=== PATIENT | female | born 1990 | race Caucasian/White ===

== ENCOUNTER 2018-02-09 10:11 | Emergency (ER) | payer OTHER ==
[2018-02-09 10:21] VITALS: BMI 23.3
--- NOTE | 2018-02-09 10:29 | PDOC ---
Attending Attestation - Resident Resident Name: Brooklyn Elkins - HPI HPI: 02/09/18 12:36 Pt presents to the ED complaining of vaginal spotting and pelvic cramping. Denies vaginal discharge or heavy bleeding. Denies fever. LMP in December with positive U preg at home. Has not seen an OB. 02/10/18 10:01 02/10/18 10:01 - Physicial Exam PE: 02/10/18 10:01 Agree with resident exam. patient is well appearing and in no acute distress. Abdomen is non tender. Pelvic exam: os is closed, minimal amount of physiologic white discharge, no blood. No CMT, very mild L sided adnexal tenderness. - Medical Decision Making 02/10/18 10:03 Pt presents to the ED complaining of pelvic cramping and vaginal spotting. Concern for ectopic . is a desired . BHCG is 6600. + IUP without yolk sac or pole on transvaginal US. Case discussed with FORMS EXAMINER Dr Guerrero, who states that the patient is safe for follow up given that it is a desired and that the patient is only mildly symptomatic. Will discharge home with ectopic precautions and instructions to follow up without fail at Dr. Guerrero's office or the ED on Sunday. Patient understands that she may have an ectopic and MUST return for worsening symptoms.
--- NOTE | 2018-02-09 10:34 | PDOC ---
History of Present Illness - General Chief Complaint: Vaginal Bleeding Stated Complaint: POSSIBLE Vaginal Bleeding Time Seen by Provider: 02/09/18 10:26 - History of Present Illness Initial Comments: 27F w/ no significant pmhx presents with 1 week history of light vaginal spotting. LMP was 01/06/18. Pt states she took a 1 week ago and today, both of which were positive. She also admits to L lower pelvic pain that she rates 5/10, worsened during ambulation. L pelvic pain started last week. Pt admits to 1 sexual partner, her . Denies contraceptive use of any kind. Denies any hx of STDs. Admits to increased fatigue, breast tenderness, mild vaginal itching. Of note, pt reports she had a transvaginal u/s ordered by her PCP last August because she was planning to get . According to pt, results were normal. She has never seen a vacuum drier operator, nor has had a pelvic exam. 02/09/18 10:52 Past History - Past Medical History Allergies/Adverse Reactions: Allergies Allergy/AdvReac Type Severity Reaction Status Date / Time No Known Allergies Allergy Unverified 02/09/18 10:35 Home Medications: Ambulatory Orders Pnv No.121/Iron/Folic Acid [ Multivitamin Tablet] 1 each PO DAILY COPD: No - Suicide/Smoking/Psychosocial Hx Smoking History: Never smoked Have you smoked in the past 12 months: No Hx Alcohol Use: No Drug/Substance Use Hx: No Substance Use Type: None Review of Systems - Review of Systems Able to Perform ROS?: Yes Is the patient limited Cambodian proficient: No Constitutional: Yes: Malaise. No: Fever, Weakness HEENTM: No: Recent change in vision Respiratory: No: Shortness of Breath, SOB with Exertion Cardiac (ROS): No: Chest Pain, Lightheadedness ABD/GI: Yes: See HPI : Yes: Frequency Neurological: No: Headache, Numbness, Paresthesia Hematologic/Lymphatic: No: Easy Bleeding, Easy Bruising *Physical Exam - Vital Signs Last Vital Signs Temp Pulse Resp BP Pulse Ox 99.1 F 107 H 18 148/85 100 02/09/18 10:18 02/09/18 10:18 02/09/18 10:18 02/09/18 10:18 02/09/18 10:18 - Physical Exam General Appearance: Yes: Appropriately Dressed HEENT: positive: EOMI, DEE Neck: positive: Supple Respiratory/Chest: positive: Lungs Clear, Normal Breath Sounds Cardiovascular: positive: Regular Rhythm, Regular Rate, S1, S2. 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 No uterine masses seen. Intrauterine fluid collection that has appearance of gestational sac. No yolk sac or pole are present, viability of gestation is uncertain. Correlate with serial b-HCGs and f/u ultrasound recommended. 1 cm cyst within L ovary. No evidence of adnexal masses or free pelvic fluid collections. Possible early IUP. Will refer patient to OBGYN for follow up of this . 02/09/18 13:47 Spoke with OBGYN (Dr. Guerrero). Recommend to follow up outpatient this Sunday, for further evaluation. Pt made aware for follow up with OBGYN. *DC/Admit/Observation/Transfer Diagnosis at time of Disposition: Vaginal bleeding, Pelvic pain - Discharge Dispostion Disposition: HOME Condition at time of disposition: Good Decision to Admit order: No - Referrals Referrals: Michelle Jacobsen MD [Primary Care Provider] - Natalee Guerrero MD [Staff Physician] - - Patient Instructions Additional Instructions: You were seen in the ED for complaints of vaginal bleeding and pelvic pain. In the ED, a transvaginal ultrasound was done that did not show an acute concern for hospitalization at this time. It is important that you follow up with your OBGYN this Sunday for further evaluation. You were given a referral to see Dr. Guerrero. Please make an appointment for this Sunday, February 11, 2018. Please also follow up with your primary care physician within 1 week. If you experience persistent abdominal/pelvic pain, increased vaginal bleeding, chest pain, shortness of breath, please proceed to your nearest emergency room immediately. - Post Discharge Activity
[2018-02-09 11:25] LABS: URINE APPEARANCE CLEAR; URINE BILIRUBIN NEGATIVE (<2.0 mg/dL); URINE COLOR LTYELLOW; URINE GLUCOSE (UA) NEGATIVE (NEGATIVE); URINE KETONE NEGATIVE (NEGATIVE); URINE LEUK ESTERASE NEGATIVE (NEGATIVE); URINE NITRITE NEGATIVE (NEGATIVE); URINE PROTEIN NEGATIVE (NEGATIVE); URINE UROBILINOGEN NEGATIVE mg/dL (0.2-1.0)
[2018-02-09 11:50] LABS: BASO % 0.8 % (0-2.0); EOS % 0.8 % (0-4.5); HEMATOCRIT 39.5 % (32.4-45.2); HEMOGLOBIN 12.9 GM/dL (10.7-15.3); LYMPH % 32.7 % (8-40); MCH 29.5 pg (25.7-33.7); MCHC 32.5 g/dl (32.0-36.0); MEAN CELL VOLUME 90.7 fl (80-96); MEAN PLT VOLUME 9.5 fl (7.5-11.1); MONO % 8.5 % (3.8-10.2); NEUT % 57.2 % (42.8-82.8); PLATELET COUNT 209 K/MM3 (134-434); RBC 4.36 M/mm3 (3.60-5.2); RDW 13.5 % (11.6-15.6); WHITE BLOOD COUNT 4.5 K/mm3 (4.0-10.0)
[2018-02-09 12:48] LABS: ALBUMIN 3.8 g/dl (3.4-5.0); ALK PHOS 43 U/L (45-117); ANION GAP 7 MMOL/L (8-16); BILIRUBIN,TOTAL 0.3 mg/dL (0.2-1); BLOOD UREA NITROGEN 8 mg/dL (7-18); CHLORIDE 112 mmol/L (98-107); CO2 26 mmol/L (21-32); CREATININE 0.6 mg/dL (0.55-1.3); GLUCOSE,RANDOM 79 mg/dL (74-106); SGOT/AST 12 U/L (15-37); SGPT/ALT 17 U/L (13-61); SODIUM 145 mmol/L (136-145); TOT PROT 7.1 g/dl (6.4-8.2)
[2018-02-09 13:57] VITALS: BP 124/74; PULSE 84; TEMP 98.9
== END 2018-02-09 14:40 | disposition home or self-care (01) ==
LOC: JER 10:11
DX: O26.891 Other specified pregnancy related conditions, first trimester (principal); O20.8 Other hemorrhage in early pregnancy; O34.81 Maternal care for other abnormalities of pelvic organs, first trimester; N83.202 Unspecified ovarian cyst, left side; Z3A.01 Less than 8 weeks gestation of pregnancy
CPT/HCPCS: 36415; 76817-TC; 80053; 81003; 84702; 84703; 85025; 86850; 86900; 86901; 99282-25

== ENCOUNTER 2018-03-15 20:03 | Emergency (ER) | payer OTHER ==
[2018-03-15 20:14] VITALS: BP 120/45; PULSE 91; TEMP 98.9; BMI 22.7
--- NOTE | 2018-03-15 20:18 | PDOC ---
Rapid Medical Evaluation Chief Complaint: Vaginal Bleeding Time Seen by Provider: 03/15/18 20:14 Medical Evaluation: Allergies Allergy/AdvReac Type Severity Reaction Status Date / Time No Known Allergies Allergy Unverified 03/15/18 20:12 Vital Signs Temp Pulse Resp BP Pulse Ox 98.9 F 91 H 18 120/45 L 100 03/15/18 20:12 03/15/18 20:12 03/15/18 20:12 03/15/18 20:12 03/15/18 20:12 03/15/18 20:15 I have performed a brief in-person evaluation of this patient. The patient presents with a chief complaint of:vaginal bleeding w/ clots tonight. No abd pain. , ~ 8-9 weeks . Had US here 01/31 read as possible early IUP, no f/u US since. Beta then was > 6K. Pertinent physical exam findings:stable I have ordered the following:labs/US The patient will proceed to the ED for further evaluation. Discharge Disposition - Diagnosis Vaginal bleeding - Referrals Referrals: Michelle Jacobsen MD [Primary Care Provider] - - Patient Instructions - Post Discharge Activity
--- NOTE | 2018-03-15 21:01 | PDOC ---
History of Present Illness - General Chief Complaint: Vaginal Bleeding Stated Complaint: Vaginal Bleeding 8 WEEKS Time Seen by Provider: 03/15/18 20:14 - History of Present Illness Initial Comments: The patient is a 27F, , at 8wks by LMP who presents w/ 2hr of vaginal bleeding with clots. Patient reports similar occurrence at 1wk. Reports going through 3 pads today. Patient endorses taking vitamins. States that she was seen at 1m at a clinic but denies ever seeing a OBGYN at that time but saw a nurse/mechanical design technician. Was told hormone levels at that time were appropriate. Has not had a US or checkup since that time. Denies fevers/chills, HICKS, chest pain, SOB, abdominal pain, C/D, or changes in sensation 03/15/18 21:06 Past History - Past Medical History Allergies/Adverse Reactions: Allergies Allergy/AdvReac Type Severity Reaction Status Date / Time No Known Allergies Allergy Unverified 03/15/18 20:12 Home Medications: Ambulatory Orders Pnv No.121/Iron/Folic Acid [ Multivitamin Tablet] 1 each PO DAILY COPD: No - Suicide/Smoking/Psychosocial Hx Smoking History: Never smoked Have you smoked in the past 12 months: No Hx Alcohol Use: No Drug/Substance Use Hx: No Substance Use Type: None Review of Systems - Review of Systems Able to Perform ROS?: Yes Comments:: GENERAL/CONSTITUTIONAL: No fever or chills. No weakness HEAD, EYES, EARS, NOSE AND THROAT: No change in vision. No ear pain or discharge. No sore throat CARDIOVASCULAR: No chest pain or shortness of breath GASTROINTESTINAL: No nausea, vomiting, diarrhea or constipation GENITOURINARY: No dysuria, frequency, or change in urination MUSCULOSKELETAL: No joint or muscle swelling or pain. No neck or back pain SKIN: No rash NEUROLOGIC: No headache, vertigo, loss of consciousness, or change in strength/ sensation ENDOCRINE: No increased thirst. No abnormal weight change HEMATOLOGIC/LYMPHATIC: No anemia, easy bleeding, or history of blood clots ALLERGIC/IMMUNOLOGIC: No hives or skin allergy 03/15/18 21:07 Is the patient limited Slovenian proficient: No *Physical Exam - Vital Signs Last Vital Signs Temp Pulse Resp BP Pulse Ox 98.9 F 91 H 18 120/45 L 100 03/15/18 20:12 03/15/18 20:12 03/15/18 20:12 03/15/18 20:12 03/15/18 20:12 - Physical Exam Comments: GENERAL: Awake, alert, and fully oriented, in no acute distress HEAD: No signs of trauma, normocephalic, atraumatic EYES: PERRLA, EOMI, sclera anicteric, conjunctiva clear ENT: Hearing grossly normal, nares patent, oropharynx clear without exudates. Moist mucosa LUNGS: No distress, speaks full sentences, clear to auscultation bilaterally HEART: Regular rate and rhythm, normal S1 and S2, no murmurs appreciated, peripheral pulses normal and equal bilaterally ABDOMEN: Soft, flat, nontender, normoactive bowel sounds. No guarding, no rebound. No masses EXTREMITIES : Normal inspection, Normal range of motion, no edema. No clubbing or cyanosis NEUROLOGICAL: Cranial nerves II through XII grossly intact. Normal speech, normal gait, no focal sensorimotor deficits SKIN: Warm, Dry, normal turgor, no rashes or lesions noted Pelvic External genitalia unremarkable. Speculum exam with bright red blood in vaginal vault Vaginal wall mucosa is unremarkable. Cervix visualized, closed with blood from os Bimanual exam without cervical motion tenderness, adnexal tenderness or any masses appreciated 03/15/18 21:07 Moderate Sedation - Procedure Monitoring Vital Signs: Procedure Monitoring Vital Signs Temperature 98.9 F 03/15/18 20:12 Pulse Rate 91 H 03/15/18 20:12 Respiratory Rate 18 03/15/18 20:12 Blood Pressure 120/45 L 03/15/18 20:12 O2 Sat by Pulse Oximetry (%) 100 03/15/18 20:12 ED Treatment Course - LABORATORY CBC & Chemistry Diagram: 03/15/18 22:20 Medical Decision Making - Medical Decision Making The patient is a 27F w/ no reported PMH who presents for evaluation of 2hr of vaginal bleeding w/ clots ED Course T/S, Beta-quant, CBC UA Transvaginal US 03/15/18 21:08 Beta-quant [id number] US read pending CBC pending 03/15/18 22:31 No anemia, Hgb 13 No leukocytosis 03/15/18 22:35 Pelvic exam notable to BRB in vaginal canal, closed os Transvaginal US significant for subchorionic hemorrhage; IUP; fHR 156 T/S: O+ Plan for D/C w/ PCP and OBGYN f/u Results, plan, discharge instructions and return precautions discussed w/ patient who is in agreement and verbalized understanding Dispo: Home *DC/Admit/Observation/Transfer Diagnosis at time of Disposition: Vaginal bleeding Qualifiers: Weeks of gestation: 10 weeks Qualified Code(s): Z3A.10 - 10 weeks gestation of - Discharge Dispostion Disposition: HOME Condition at time of disposition: Stable Decision to Admit order: No - Referrals Referrals: Michelle Jacobsen MD [Primary Care Provider] - Suzette Borges MD [Staff Physician] - - Patient Instructions Printed Discharge Instructions: DI for Vaginal Bleeding During - Post Discharge Activity
--- NOTE | 2018-03-15 21:56 | PDOC ---
Attending Attestation - Resident Resident Name: Frecnh Nieves - ED Attending Attestation I have performed the following: I have examined & evaluated the patient, The case was reviewed & discussed with the resident, I agree w/resident's findings & plan, Exceptions are as noted - Medical Decision Making 03/15/18 21:55 I, Dr. Daisha Green, DO, attest that this document has been prepared under my direction and personally reviewed by me in its entirety. I further attest, that it accurately reflects all work, treatment, procedures and medical decision -making performed by me. 03/15/18 22:17 a/p: 27yo at 8 weeks gestation with vaginal bleeding -concern for threatened ab -will send labs, type and screen, ua, beta -will obtain tvus -no abd cramping -os closed on exam -will monitor and reassess 03/15/18 22:47 IUP at 10 weeks o+ on type and screen beta > [id number] 03/15/18 22:48 subchorionic bleed on ultrasound stable for d/c to home and follow up with Dr. Borges for care <Daisha Green - Last Filed: 03/15/18 22:47> - HPI HPI: 03/15/18 23:21 The patient is a 27 year old female([id number]) with no significant PMH of who presents to the emergency department with vaginal bleed earlier today. The patient reports some associated clotting with her vaginal bleed. She states that she went through about 3 pads. The patient states that she experienced a similar episode about 1 month ago during her first month of but not as severe: she reports some associated intermittent nausea and vomiting with her symptoms. The patient denies any other symptoms or complaints. - Physicial Exam PE: 03/15/18 23:21 GENERAL: Awake, alert, and fully oriented, in no acute distress HEAD: No signs of trauma EYES: PERRLA, EOMI, sclera anicteric, conjunctiva clear ENT: Auricles normal inspection, hearing grossly normal, nares patent, oropharynx clear without exudates. Moist mucosa NECK: Normal ROM, supple, no lymphadenopathy, JVD, or masses LUNGS: Breath sounds equal, clear to auscultation bilaterally. No wheezes, and no crackles HEART: Regular rate and rhythm, normal S1 and S2, no murmurs, rubs or gallops ABDOMEN: Soft, nontender, normoactive bowel sounds. No guarding, no rebound. No masses EXTREMITIES: Normal range of motion, no edema. No clubbing or cyanosis. No cords, erythema, or tenderness NEUROLOGICAL: Cranial nerves II through XII grossly intact. Normal speech, normal gait SKIN: Warm, Dry, normal turgor, no rashes or lesions noted. PELVIC: (+) brite red blood in vaginal vault. OS is closed, no CMT. Documentation prepared by Calvin Yepez, acting as center medical and lab director for Daisha Green MD. <Calvin Yepez - Last Filed: 03/15/18 23:23>
[2018-03-15 22:29] LABS: HEMATOCRIT 36.6 % (32.4-45.2); MCH 31.7 pg (25.7-33.7); MCHC 35.6 g/dl (32.0-36.0); MEAN CELL VOLUME 89.1 fl (80-96); MEAN PLT VOLUME 9.4 fl (7.5-11.1); PLATELET COUNT 236 K/MM3 (134-434); RBC 4.11 M/mm3 (3.60-5.2); RDW 13.2 % (11.6-15.6); WHITE BLOOD COUNT 7.9 K/mm3 (4.0-10.0)
[2018-03-15 22:31] LABS: URINE APPEARANCE CLEAR; URINE BILIRUBIN NEGATIVE (<2.0 mg/dL); URINE COLOR STRAW; URINE GLUCOSE (UA) NEGATIVE (NEGATIVE); URINE KETONE NEGATIVE (NEGATIVE); URINE LEUK ESTERASE NEGATIVE (NEGATIVE); URINE NITRITE NEGATIVE (NEGATIVE); URINE PROTEIN NEGATIVE (NEGATIVE); URINE UROBILINOGEN NEGATIVE mg/dL (0.2-1.0)
[2018-03-15 22:35] LABS: EPI CELLS RARE /HPF (FEW); URINE MUCUS RARE
== END 2018-03-15 22:58 | disposition home or self-care (01) ==
LOC: JER 20:03
DX: O26.891 Other specified pregnancy related conditions, first trimester (principal); O20.8 Other hemorrhage in early pregnancy; Z3A.10 10 weeks gestation of pregnancy
CPT/HCPCS: 36415; 76801-TC; 81003; 81015; 84702; 85027; 86850; 86900; 86901; 99281-25

== ENCOUNTER 2018-09-29 23:43 | Inpatient (IN) | payer OTHER ==
[2018-09-30] MEDS: DEXTROSE 5%-LACTATED RINGERS 1,000 ML IV SCH (00:30)
[2018-09-30] MEDS ORDERED: AMPICILLIN - 2 GM in SODIUM CHLORIDE 100 ML IVPB ONE (00:50)
[2018-09-30] MEDS ORDERED: AMPICILLIN SODIUM 2 GM VIAL ONE (00:58)
[2018-09-30] MEDS ORDERED: LIDOCAINE HCL 1% PRESERVATIVE FREE - 30ML VIAL ONE (01:30)
[2018-09-30] MEDS ORDERED: OXYTOCIN 20 UNITS in 0.9% NS 20 UNIT/1,000 ML INFUS.BAG IV ONE ×2 (01:30→03:35)
[2018-09-30 01:33] LABS: BASO % 0.8 % (0-2.0); EOS % 0.2 % (0-4.5); HEMOGLOBIN 13.3 GM/dL (10.7-15.3); LYMPH % 19.4 % (8-40); MCH 31.8 pg (25.7-33.7); MEAN CELL VOLUME 93.5 fl (80-96); MEAN PLT VOLUME 10.7 fl (7.5-11.1); MONO % 5.4 % (3.8-10.2); NEUT % 74.2 % (42.8-82.8); PLATELET COUNT 165 K/MM3 (134-434); RBC 4.17 M/mm3 (3.60-5.2); RDW 13.6 % (11.6-15.6); WHITE BLOOD COUNT 9.4 K/mm3 (4.0-10.0)
--- NOTE | 2018-09-30 01:45 | PN ---
Progress Note, Labor Vaginal Exam #1 Labor Exam Date: 09/30/18 Labor Exam Time: 00:25 Heart Rate (range): cat 1 Dilatation: 5 Amniotic Membrane Status: Bulging Presentation: Vertex/Position Station: 0 (Declines pain meds)
--- NOTE | 2018-09-30 01:46 | PN ---
Progress Note, Labor Vaginal Exam #2 Labor Exam Date: 09/30/18 Labor Exam Time: 01:20 Heart Rate (range): cat 1 Dilatation: fully Amniotic Membrane Status: Ruptured Station: +2 (Urge to push. Start pushing.)
[2018-09-30 01:51] LABS: INR 0.91 (0.83-1.09); PROTHROMBIN TIME (PATIENT) 10.7 SEC (9.7-13.0)
[2018-09-30 01:53] LABS: ACTIVATED PTT 31.8 SECONDS (25.2-36.5)
[2018-09-30 01:59] LABS: BLOOD UREA NITROGEN 10.2 mg/dL (7-18); CREATININE 0.7 mg/dL (0.55-1.3); POTASSIUM 3.8 mmol/L (3.5-5.1)
[2018-09-30] MEDS: OXYTOCIN 20 UNITS in 0.9% NS 20 UNIT/1,000 ML INFUS.BAG IV SCH (02:05)
[2018-09-30] MEDS ORDERED: BUTORPHANOL TARTRATE 2 MG/ML VIAL ONE (02:16)
--- NOTE | 2018-09-30 02:47 | PN ---
Delivery - Delivery Vaginal Delivery: Spontaneous Type of Anesthesia: Local Episiotomy/Laceration: Midline, Perineal Extension/lac (Pushing out of control. Extension to rectum. Placents spont., intact. Repair anatomically with Vicryl 3- 0 and chromic 2-0. Good closure. Local xylocaine, Stadol 2mg iv. Ice pack. Explained. Instructions given.), 4th Degree
--- NOTE | 2018-09-30 02:54 | HP ---
Past Medical History - Admission History Source: Patient (Language barrier.) Limitations to Obtaining History: Language Barrier - Past Medical History Heme/Onc: No: Anemia, B12 Deficiency, Bleeding Disorder, Cancer, Current Chemotherapy, Current Radiation Therapy, Hemochromatosis, Hypercoaguable State, Myeloproliferative Synd, Sickle Cell Disease, Sickle Cell Trait, Thrombocytopenia, Other Infectious Disease: No: AIDS, C-Diff, Herpes Zoster, HIV, MRSA, STD's, Tuberculosis, VREF, Other Psych: No: Addictions, Anxiety, Bipolar, Depression, Panic, Psychosis, Schizophrenia, Other Rheumatology: No: Fibromyalgia, Gout, Lupus, Rheumatoid Arthritis, Sarcoidosis, Vasculitis, Other ENT: No: Allergic Rhinitis, Sinusitis, Other Endocrine: No: Wallagrass's Disease, Purvi's Disease, Diabetes Insipidus, Diabetes Mellitus, Hyperparathyroidism, Hyperthyroidism, Hypothyroidism, Osteopenia, SIADH, Other Dermatology: No: Basal Cell, Cellulitis, Eczema, Melanoma, Psoriasis, Squamous Cell, Other - Past Surgical History Past Surgical History: No: None, AAA Repair, AICD, Amputation, Appendectomy, Arthrosocopy, AV Fistula/Graft, Bariatric Surgery, Breast Biopsy (Breast fibroadenoma removed.), Bypass, CABG, Carotid Endarterectomy, Cataract Removal, Cholecystectomy, Colectomy, Colonoscopy, Colostomy, Craniotomy, , Cystectomy, Hernia Repair, Hysterectomy, Ileal Conduit, Ileosotomy, Joint Replacement, Kidney Transplant, Laminectomy, Liver Transplant, Mastectomy, Nephrectomy, Oopherectomy, Orchiectomy, Permanent Pacemaker, Prostatectomy, Splenectomy, Stent, Thoracotomy, TURP, Tonsillectomy, Tubal Ligation, Upper Endoscopy, Valve Replacement, Vasectomy, Vein Stripping/Ligation Hx Myomectomy: No Hx Transabdominal Cerclage: No - Smoking History Smoking history: Never smoked Have you smoked in the past 12 months: No - Alcohol/Substance Use Hx Alcohol Use: No - Social History Usual Living Arrangement: Yes: With Spouse Home Medications - Allergies Allergies/Adverse Reactions: Allergies Allergy/AdvReac Type Severity Reaction Status Date / Time No Known Allergies Allergy Unverified 03/15/18 20:12 - Home Medications Home Medications: Ambulatory Orders Pnv No.121/Iron/Folic Acid [ Multivitamin Tablet] 1 each PO DAILY Ferrous Sulfate [Iron] 325 mg PO DAILY 09/30/18 Folic Acid - 1 mg PO WEEKLY 09/30/18 Family Disease History - Family Disease History Family History: Unable to Obtain Review of Systems - Review of Systems Constitutional: denies: No Symptoms, Chills, Diaphoresis, Fever, Lethargy, Loss of Appetite, Malaise, Night Sweats, Unintentional Wgt. Loss, Weakness, Other Eyes: denies: No Symptoms, Blind Spots, Blurred Vision, Double Vision, Eye Pain , Floaters, Photophobia, Recent Change in Vision, Other HENT: denies: No Symptoms, Difficult Swallowing, Ear Discharge, Ear Pain, Epistaxis, Gingival Bleeding, Hearing Loss, Mouth Swelling, Nasal Congestion, Ocular Prosthesis, Throat Pain, Toothache, Ringing in Ears, Other Neck: denies: No Symptoms, Decreased ROM, Lumps, Pain on Movement, Stiffness, Swollen Glands, Tenderness, Other Cardiovascular: denies: No Symptoms, Chest Pain, Edema, Palpitations, Shortness of Breath, Other Gastrointestinal: denies: No Symptoms, Abdominal Pain, Bloating, Constipation, Diarrhea, Dysphagia, Indigestion, Melena, Nausea, Rectal Bleeding, Vomiting, Vomiting Blood, Other Physical Exam - Maternity Constitutional: Yes: Well Nourished, Moderate Distress Eyes: Yes: WNL HENT: Yes: WNL Neck: Yes: WNL Cardiovascular: Yes: WNL Lungs: Clear to auscultation Breast(s): Yes: WNL - Abdominal Exam/OB Number of Fetuses: Single Presentation: Vertex Contractions: Yes Regularity: Regular Intensity: Mod/Strong Monitor Mode: External Category: I Accelerations: Uniform - Vaginal Exam/OB Vaginal Bleediing: No Speculum Exam: No Dilatation (cm): 5 Effacement (%): 80% Amniotic Membrane Status: Intact Presentation: Vertex/Position Station: -1 - Physical Exam Musculoskeletal: No: WNL, Back Pain, Joint Stiffness, Joint Swelling, Muscle Pain, Muscle Weakness, Other Extremities: No: WNL, Amputation, Calf Tenderness, Cold, Cool, Cyanosis, Deformity, Delayed Capillary Refill, Erythema, External Rotation, Internal Rotation, Pallor, Shortened, Other Integumentary: No: WNL, Body Piercing, Bruising, Erythema, Incision, Jaundice, Laceration, Petechiae, Pressure Ulcer, Rash, Skin Tear, Tattoos, Tenting, Onychomycosis, Venous Stasis Changes, Other ...Motor Strength: WNL, LUE, LLE, RUE, RLE Psychiatric: No: WNL, Alert, Oriented, Agitated, Suicidal Ideation, Other - Labs Lab Results: CBC, BMP 09/30/18 01:15 09/30/18 01:15 Problem List - Problems (1) Normal labor Code(s): O80 - ENCOUNTER FOR FULL-TERM UNCOMPLICATED DELIVERY; Z37.9 - OUTCOME OF DELIVERY, UNSPECIFIED Assessment/Plan Observe. Allow labor to continue. Expecting vaginal delivery. GBS unknown, Ampicillin 2 G.
[2018-09-30] MEDS ORDERED: BENZOCAINE 20% 57 GM BOTTLE TP PRN (03:04)
[2018-09-30] MEDS ORDERED: BENZOCAINE 28 GM HEMORRHOIDAL OINTMENT TP PRN (03:04)
[2018-09-30] MEDS ORDERED: WITCH HAZEL 50% (TUCKS) 40 PAD/JAR PAD TP PRN (03:04)
[2018-09-30] MEDS ORDERED: METHYLERGONOVINE MALEATE 0.2 MG/1 ML AMP IM PRN (03:04)
[2018-09-30] MEDS ORDERED: BISACODYL 10 MG SUPP.RECT RC PRN (03:04)
[2018-09-30 03:15] VITALS: BMI 28.2
[2018-09-30] MEDS ORDERED: BUTORPHANOL TARTRATE 2 MG/ML VIAL IVPUSH ONE (04:30)
--- NOTE | 2018-09-30 08:16 | PN ---
Post Progress Note - Subjective Subjective: Patient feels very well. Happy. . Minimal pain. Type of Delivery: Vital Signs: Vital Signs Temperature 98.4 F 09/30/18 04:30 Pulse Rate 84 09/30/18 04:30 Respiratory Rate 18 09/30/18 04:30 Blood Pressure 125/90 09/30/18 04:30 O2 Sat by Pulse Oximetry (%) 100 09/30/18 03:45 Uterus: Yes: Fundus Firm Lochia: Yes: Rubra Lochia, amount: Moderate Extremities: Yes: Calves non-tender Perineum: Yes: Episiotomy, Laceration Activity: Ambulating (Good recovery. Events of last night explained. Patient apologvizesw for lack of control. I told her she did great, totally natural and she should proud.) - Labs Labs: CBC WBC 9.4 K/mm3 (4.0-10.0) 09/30/18 01:15 RBC 4.17 M/mm3 (3.60-5.2) 09/30/18 01:15 Hgb 13.3 GM/dL (10.7-15.3) 09/30/18 01:15 Hct 39.0 % (32.4-45.2) 09/30/18 01:15 MCV 93.5 fl (80-96) 09/30/18 01:15 MCH 31.8 pg (25.7-33.7) 09/30/18 01:15 MCHC 34.0 g/dl (32.0-36.0) 09/30/18 01:15 RDW 13.6 % (11.6-15.6) 09/30/18 01:15 Plt Count 165 K/MM3 (134-434) D 09/30/18 01:15 MPV 10.7 fl (7.5-11.1) D 09/30/18 01:15 Absolute Neuts (auto) 7.0 K/mm3 (1.5-8.0) 09/30/18 01:15 Neutrophils % 74.2 % (42.8-82.8) D 09/30/18 01:15 Lymphocytes % 19.4 % (8-40) D 09/30/18 01:15 Monocytes % 5.4 % (3.8-10.2) 09/30/18 01:15 Eosinophils % 0.2 % (0-4.5) 09/30/18 01:15 Basophils % 0.8 % (0-2.0) 09/30/18 01:15 Nucleated RBC % 0 % (0-0) 09/30/18 01:15 Problem List - Problems (1) Normal labor Code(s): O80 - ENCOUNTER FOR FULL-TERM UNCOMPLICATED DELIVERY; Z37.9 - OUTCOME OF DELIVERY, UNSPECIFIED
[2018-09-30] MEDS ORDERED: FOLIC ACID 1 MG TABLET (FP) PO SCH (10:00)
[2018-09-30] MEDS: POLYETHYLENE GLYCOL 3350 119 GM BTL PO SCH (10:38)
[2018-09-30] MEDS: IBUPROFEN 600 MG TABLET (FP) PO PRN ×2 (16:01→22:54)
[2018-09-30] MEDS: ACETAMINOPHEN 325 MG TABLET (FP) PO PRN ×2 (16:02→22:53)
--- NOTE | 2018-10-01 04:59 | PN ---
Post Progress Note - Subjective Subjective: 28 yo status post vaginal delivery, seen and evaluated. Doing well Post Day: 1 Type of Delivery: Vital Signs: Vital Signs Temperature 97.9 F 10/01/18 02:00 Pulse Rate 63 10/01/18 02:00 Respiratory Rate 18 10/01/18 02:00 Blood Pressure 113/58 L 10/01/18 02:00 O2 Sat by Pulse Oximetry (%) 100 09/30/18 03:45 Breast Exam: Yes: Soft Uterus: Yes: Fundus Firm Abdomen/GI: Yes: Abdomen soft, Tolerating PO Lochia: Yes: Rubra Lochia, amount: Moderate Extremities: Yes: Calves non-tender Activity: Ambulating - Labs Labs: CBC WBC 9.4 K/mm3 (4.0-10.0) 09/30/18 01:15 RBC 4.17 M/mm3 (3.60-5.2) 09/30/18 01:15 Hgb 13.3 GM/dL (10.7-15.3) 09/30/18 01:15 Hct 39.0 % (32.4-45.2) 09/30/18 01:15 MCV 93.5 fl (80-96) 09/30/18 01:15 MCH 31.8 pg (25.7-33.7) 09/30/18 01:15 MCHC 34.0 g/dl (32.0-36.0) 09/30/18 01:15 RDW 13.6 % (11.6-15.6) 09/30/18 01:15 Plt Count 165 K/MM3 (134-434) D 09/30/18 01:15 MPV 10.7 fl (7.5-11.1) D 09/30/18 01:15 Absolute Neuts (auto) 7.0 K/mm3 (1.5-8.0) 09/30/18 01:15 Neutrophils % 74.2 % (42.8-82.8) D 09/30/18 01:15 Lymphocytes % 19.4 % (8-40) D 09/30/18 01:15 Monocytes % 5.4 % (3.8-10.2) 09/30/18 01:15 Eosinophils % 0.2 % (0-4.5) 09/30/18 01:15 Basophils % 0.8 % (0-2.0) 09/30/18 01:15 Nucleated RBC % 0 % (0-0) 09/30/18 01:15 Problem List - Problems (1) Status post vaginal delivery Code(s): [id number] - Assessment/Plan Status post vaginal delivery Stable Continue routine care
[2018-10-01 07:23] LABS: BASO % 0.8 % (0-2.0); EOS % 1.7 % (0-4.5); HEMATOCRIT 34.4 % (32.4-45.2); HEMOGLOBIN 11.5 GM/dL (10.7-15.3); LYMPH % 25.5 % (8-40); MCH 31.4 pg (25.7-33.7); MCHC 33.4 g/dl (32.0-36.0); MEAN CELL VOLUME 93.9 fl (80-96); MEAN PLT VOLUME 10.1 fl (7.5-11.1); MONO % 5.2 % (3.8-10.2); NEUT % 66.8 % (42.8-82.8); PLATELET COUNT 211 K/MM3 (134-434); RBC 3.67 M/mm3 (3.60-5.2); RDW 14.1 % (11.6-15.6); WHITE BLOOD COUNT 12.1 K/mm3 (4.0-10.0)
[2018-10-01] MEDS: POLYETHYLENE GLYCOL 3350 119 GM BTL PO SCH (10:01)
--- NOTE | 2018-10-01 17:21 | PN ---
Post Progress Note - Subjective Subjective: Feels well. Happy. Brest feeding. Little "weepy". Some anal pain. Type of Delivery: Vital Signs: Vital Signs Temperature 98.5 F 10/01/18 10:00 Pulse Rate 73 10/01/18 10:00 Respiratory Rate 20 10/01/18 10:00 Blood Pressure 113/63 10/01/18 10:00 O2 Sat by Pulse Oximetry (%) 100 09/30/18 03:45 Breast Exam: Yes: Engorged Uterus: Yes: Fundus Firm Abdomen/GI: Yes: Abdomen soft Lochia: Yes: Rubra Lochia, amount: Small Extremities: Yes: Calves non-tender Perineum: Yes: Episiotomy, Laceration Activity: Ambulating (Patient is doing well . Some perianal pain which is understandable. Discussed.) - Labs Labs: CBC WBC 12.1 K/mm3 (4.0-10.0) H 10/01/18 07:01 RBC 3.67 M/mm3 (3.60-5.2) 10/01/18 07:01 Hgb 11.5 GM/dL (10.7-15.3) 10/01/18 07:01 Hct 34.4 % (32.4-45.2) 10/01/18 07:01 MCV 93.9 fl (80-96) 10/01/18 07:01 MCH 31.4 pg (25.7-33.7) 10/01/18 07:01 MCHC 33.4 g/dl (32.0-36.0) 10/01/18 07:01 RDW 14.1 % (11.6-15.6) 10/01/18 07:01 Plt Count 211 K/MM3 (134-434) D 10/01/18 07:01 MPV 10.1 fl (7.5-11.1) 10/01/18 07:01 Absolute Neuts (auto) 8.1 K/mm3 (1.5-8.0) H 10/01/18 07:01 Neutrophils % 66.8 % (42.8-82.8) 10/01/18 07:01 Lymphocytes % 25.5 % (8-40) D 10/01/18 07:01 Monocytes % 5.2 % (3.8-10.2) 10/01/18 07:01 Eosinophils % 1.7 % (0-4.5) D 10/01/18 07:01 Basophils % 0.8 % (0-2.0) 10/01/18 07:01 Nucleated RBC % 0 % (0-0) 10/01/18 07:01 Problem List - Problems (1) Normal labor Code(s): O80 - ENCOUNTER FOR FULL-TERM UNCOMPLICATED DELIVERY; Z37.9 - OUTCOME OF DELIVERY, UNSPECIFIED (2) Status post vaginal delivery Code(s): PAM3677 - Assessment/Plan Good recovery. PP instructions given. Pt. is planning to go home tomorrow. Baby is under the lights. Miralax, Metamucil, sitzbath. I will see her in 4 weeks for a PP visit.
[2018-10-01] MEDS ORDERED: SENNOSIDES/DOCUSATE COMBO (SENNA PLUS) TABLET (UD) PO PRN (22:00)
[2018-10-02] MEDS: DEXTROSE 5%-LACTATED RINGERS 1,000 ML IV SCH ×2 (03:05→03:06)
[2018-10-02] MEDS: OXYTOCIN 20 UNITS in 0.9% NS 20 UNIT/1,000 ML INFUS.BAG IV SCH (03:06)
--- NOTE | 2018-10-02 07:38 | DS ---
Physical Examination Vital Signs: Vital Signs Temperature 98.4 F 10/01/18 22:00 Pulse Rate 86 10/01/18 22:00 Respiratory Rate 18 10/01/18 22:00 Blood Pressure 122/75 10/01/18 22:00 O2 Sat by Pulse Oximetry (%) 100 09/30/18 03:45 Findings/Remarks: Adequate PP recovery, infant is under lights and discharge pending testing results in am Constitutional: Yes: Well Nourished, No Distress HENT: Yes: Atraumatic, Normocephalic Neck: Yes: Supple Gastrointestinal: Yes: Soft ...Rectal Exam: Yes: Deferred Breast(s): Yes: Other (deferred) Musculoskeletal: Yes: WNL Extremities: Yes: WNL (no calf tenderness) Edema: Yes Edema: LLE: Trace, RLE: Trace Integumentary: Yes: WNL Neurological: Yes: Alert, Oriented Psychiatric: Yes: Alert, Oriented Labs: CBC, BMP 10/01/18 07:01 09/30/18 01:15 Discharge Summary Reason For Visit: ADMIT LABOR Current Active Problems Normal labor (Acute) Status post vaginal delivery (Acute) Condition: Stable - Instructions Diet, Activity, Other Instructions: Regular Diet Referrals: Jina Fry MD [Staff Physician] - Disposition: HOME - Home Medications Comprehensive Discharge Medication List: Ambulatory Orders Pnv No.121/Iron/Folic Acid [ Multivitamin Tablet] 1 each PO DAILY Ferrous Sulfate [Iron] 325 mg PO DAILY 09/30/18 Folic Acid - 1 mg PO WEEKLY 09/30/18 Ibuprofen 600 mg PO Q6H PRN #30 tablet 09/30/18
[2018-10-02] MEDS: POLYETHYLENE GLYCOL 3350 119 GM BTL PO SCH (09:24)
[2018-10-02] MEDS: IBUPROFEN 600 MG TABLET (FP) PO PRN (09:57)
[2018-10-02] MEDS: ACETAMINOPHEN 325 MG TABLET (FP) PO PRN (09:57)
[2018-10-02 10:15] VITALS: BP 120/77; PULSE 84; TEMP 98.3
== END 2018-10-02 19:10 | disposition home or self-care (01) | DRG 560 ==
LOC: JDEL 23:43 → JLDR 09-30 00:15 → J3W 09-30 04:29
PROVIDERS: ADMIT Obstetrics & Gynecology; ATTEND Obstetrics & Gynecology
PROC: 10E0XZZ Delivery of Products of Conception, External Approach (ICD-10-PCS; principal; 2018-09-30)
PROC: 0W8NXZZ Division of Female Perineum, External Approach (ICD-10-PCS; 2018-09-30)
PROC: 0DQP0ZZ Repair Rectum, Open Approach (ICD-10-PCS; 2018-09-30)
DX: O70.3 Fourth degree perineal laceration during delivery (principal); Z3A.38 38 weeks gestation of pregnancy; Z37.0 Single live birth
CPT/HCPCS: 36415; 59025; 59409; 80048; 85025; 85610; 85730; 86593; 86850; 86900; 86901

== ENCOUNTER 2023-03-09 10:25 | Inpatient (IN) | payer OTHER ==
[2023-03-09] MEDS ORDERED: ELECTROLYTE-148 SOLN 1,000 ML IV ONE (11:30)
[2023-03-09 12:19] VITALS: BMI 31.1
[2023-03-09 12:27] LABS: BASO % 0.8 % (0-2.0); EOS % 1.2 % (0-4.5); HEMATOCRIT 33.7 % (32.4-45.2); HEMOGLOBIN 10.6 GM/dL (10.7-15.3); LYMPH % 9.4 % (8-40); MCH 26.2 pg (25.7-33.7); MCHC 31.3 g/dl (32.0-36.0); MEAN CELL VOLUME 83.9 fl (80-96); MEAN PLT VOLUME 9.6 fl (7.5-11.1); MONO % 3.8 % (3.8-10.2); NEUT % 84.8 % (42.8-82.8); PLATELET COUNT 206 10^3/uL (134-434); RBC 4.02 M/mm3 (3.60-5.2); RDW 13.7 % (11.6-15.6); WHITE BLOOD COUNT 9.7 K/mm3 (4.0-10.0)
[2023-03-09 12:35] LABS: PROTHROMBIN TIME (PATIENT) 11.6 SEC (9.7-13.0)
[2023-03-09] MEDS ORDERED: BUTORPHANOL TARTRATE 2 MG/ML VIAL ONE (12:36)
[2023-03-09 12:38] LABS: ACTIVATED PTT 26.8 SECONDS (25.2-36.5)
[2023-03-09] MEDS ORDERED: BUTORPHANOL TARTRATE 2 MG/ML VIAL IVPB ONE (12:38)
[2023-03-09] MEDS ORDERED: PROMETHAZINE HCL 25 MG/1 ML VIAL IVPB ONE (12:38)
[2023-03-09 12:57] LABS: BLOOD UREA NITROGEN 9.1 mg/dL (7-18); CALCIUM 8.3 mg/dL (8.5-10.1); CREATININE 0.7 mg/dL (0.55-1.3); POTASSIUM 3.7 mmol/L (3.5-5.1)
[2023-03-09] MEDS ORDERED: OXYTOCIN 20 UNITS in 0.9% NS 20 UNIT/1,000 ML INFUS.BAG IV ONE (13:03)
[2023-03-09] MEDS ORDERED: LIDOCAINE HCL 1% PRESERVATIVE FREE - 30ML VIAL ONE (13:03)
[2023-03-09] MEDS ORDERED: BENZOCAINE 20% 57 GM BOTTLE TP PRN (15:08)
[2023-03-09] MEDS ORDERED: WITCH HAZEL 50% (TUCKS) 40 PAD/JAR PAD TP PRN (15:08)
[2023-03-09] MEDS ORDERED: BISACODYL 10 MG SUPP.RECT RC PRN (15:08)
[2023-03-09] MEDS ORDERED: IBUPROFEN 600 MG TABLET (FP) PO PRN (15:08)
[2023-03-09] MEDS ORDERED: METHYLERGONOVINE MALEATE 0.2 MG/1 ML AMP IM PRN (15:08)
[2023-03-09] MEDS ORDERED: BENZOCAINE 28 GM HEMORRHOIDAL OINTMENT TP PRN (15:08)
[2023-03-09] MEDS ORDERED: ACETAMINOPHEN 325 MG TABLET (FP) PO PRN (15:08)
[2023-03-09] MEDS ORDERED: oxyCODONE HCL 5 MG TABLET PO PRN (15:08)
[2023-03-09] MEDS ORDERED: OXYTOCIN 20 UNITS in 0.9% NS 20 UNIT/1,000 ML INFUS.BAG IV SCH (15:15)
[2023-03-09] MEDS ORDERED: ceFAZolin SODIUM 1 GM VIAL ONE (15:25)
[2023-03-09] MEDS: CEFAZOLIN 1 GM in DEXTROSE 5%-WATER - 50 ML IVPB SCH ×2 (15:31→22:08)
[2023-03-10] MEDS: CEFAZOLIN 1 GM in DEXTROSE 5%-WATER - 50 ML IVPB SCH ×2 (06:23→15:00)
[2023-03-10 08:30] LABS: BASO % 0.5 % (0-2.0); EOS % 4.3 % (0-4.5); HEMATOCRIT 28.9 % (32.4-45.2); HEMOGLOBIN 9.6 GM/dL (10.7-15.3); LYMPH % 20.4 % (8-40); MCH 27.3 pg (25.7-33.7); MCHC 33.1 g/dl (32.0-36.0); MEAN CELL VOLUME 82.4 fl (80-96); MEAN PLT VOLUME 9.8 fl (7.5-11.1); MONO % 6.4 % (3.8-10.2); NEUT % 68.4 % (42.8-82.8); PLATELET COUNT 193 10^3/uL (134-434); RDW 13.7 % (11.6-15.6)
[2023-03-10] MEDS: PRENATAL VITAMINS W/ FOLIC ACID TABLET (FP) PO SCH (11:00)
[2023-03-10] MEDS ORDERED: SENNOSIDES/DOCUSATE COMBO (SENNA PLUS) TABLET (UD) PO PRN (22:00)
[2023-03-11] MEDS: PRENATAL VITAMINS W/ FOLIC ACID TABLET (FP) PO SCH (09:59)
[2023-03-11 12:15] VITALS: BP 111/70; PULSE 76; RESP 17; TEMP 97.6
== END 2023-03-11 14:30 | disposition home or self-care (01) | DRG 807 ==
LOC: JDEL 10:25 → JLDR 11:40 → J3W 17:00
PROVIDERS: ADMIT Obstetrics & Gynecology; ATTEND Obstetrics & Gynecology
PROC: 10E0XZZ Delivery of Products of Conception, External Approach (ICD-10-PCS; principal; 2023-03-09)
PROC: 10D17Z9 Manual Extraction of Products of Conception, Retained, Via Natural or Artificial Opening (ICD-10-PCS; 2023-03-09)
PROC: 0HQ9XZZ Repair Perineum Skin, External Approach (ICD-10-PCS; 2023-03-09)
DX: O70.0 First degree perineal laceration during delivery (principal); Z37.0 Single live birth; O69.81X0 Labor and delivery complicated by cord around neck, without compression, not applicable or unspecified; Z3A.37 37 weeks gestation of pregnancy
CPT/HCPCS: 36415; 59025; 80048; 85025; 85610; 85730; 86780; 86850; 86900; 86901; 88307-TC

== ENCOUNTER 2024-05-31 11:26 | Emergency (ER) | payer OTHER ==
[2024-05-31 11:36] VITALS: BP 113/53; PULSE 76; RESP 18; TEMP 98; BMI 25.8
== END 2024-05-31 12:41 | disposition home or self-care (01) ==
LOC: JERFT 11:26 → JER 11:26 → JERFT 12:41
DX: M62.838 Other muscle spasm (principal); M54.2 Cervicalgia; R20.0 Anesthesia of skin
CPT/HCPCS: 99283-25